=== PATIENT | female | born 1960 | race African-American/Black ===

== ENCOUNTER 2018-06-05 13:03 | Emergency (ER) | payer MEDICAID, OTHER ==
[~2018-06-05] VITALS: Ht 152.4 cm; Wt 77.1 kg
[2018-06-05 13:12] VITALS: BP 124/79
--- NOTE | 2018-06-05 13:34 | NUR ---
ED Nurse Note: PT. AAOX4. AMBULATORY. CAME IN TO ER DUE TO SOB SINCE LAST NIGHT. PER PT. HAS HX OF ASTHMA AND RAN OUT OF HER MEDICATIONS. PT. ALSO REPORTED HEADCHE AND RUNNY NOSE. WHEEZING NOTED TO AUSCULATION ON BILATERAL LUNG TURNER
--- NOTE | 2018-06-05 13:38 | Emergency Room Report ---
History of Present Illness General Chief Complaint: Flu Like Symptoms Source: Patient Present Illness HPI 57-year-old female patient presents the ER complaining of asthma and cold symptoms. Reports wheezing symptoms for the past 4 days, states has been using her inhaler however ran out of the medication. Denies taking any oral steroids. Reports history of smoking, states that she quit smoking 3 days ago. Reports cough with sputum during this time. Denies hemoptysis. Reports subjective fever at home during this time, currently afebrile in the ER. Denies recent travel outside the country. Denies vomiting or diarrhea. Denies chest pain. Denies other aggravating or relieving factors. Allergies: Coded Allergies: RISPERIDONE (Verified Allergy, Unknown, 06/05/18) Patient History Past Medical History: see triage record Reviewed Nursing Documentation: PMH: Agreed; PSxH: Agreed Nursing Documentation-PMH Hx Asthma: Yes Review of Systems All Other Systems: negative except mentioned in HPI Physical Exam Vital Signs Date Time Temp Pulse Resp B/P (MAP) Pulse Ox O2 Delivery O2 Flow Rate FiO2 06/05/18 13:12 97.9 100 23 124/79 95 Room Air Sp02 EP Interpretation: reviewed, normal General Appearance: well appearing, no apparent distress, alert, GCS 15, non- toxic Head: normocephalic, atraumatic Eyes: bilateral eye normal inspection, bilateral eye PERRL ENT: hearing grossly normal, normal pharynx, no angioedema, normal voice, uvula midline, moist mucus membranes Neck: full range of motion, no bony tend Respiratory: lungs clear, normal breath sounds, no rhonchi, no respiratory distress, no accessory muscle use, speaking full sentences, wheezing, other - No stridor Cardiovascular #1: regular rate, rhythm, no edema, normal capillary refill Musculoskeletal: back normal, digits/nails normal, gait/station normal, normal range of motion, non-tender, no calf tenderness, Connor's Sign negative Neurologic: alert, oriented x3, responsive, motor strength/tone normal, sensory intact Psychiatric: mood/affect normal Skin: no rash Medical Decision Making PA Attestation Dr. Barker is my supervising Physician whom patient management has been discussed with. Diagnostic Impression: Primary Impression: Asthma exacerbation Additional Impression: Atypical pneumonia ER Course Pt presents to ED c/o breathing difficulty. DDX considered but are not limited to asthma, viral URI, influenza, bronchitis, pneumonia, PE. Low suspicion for PE per Well's criteria. VITAL SIGNS are WNL, patient is afebrile. ER COURSE Patient provided with prednisone and cough medication. Duoneb breathing treatment provided. Following treatment patient states no longer having difficulty with breathing. Lung sounds improved however wheezing still noted. Patient declined need for second breathing treatment. Patient is resting comfortably in no acute distress, speaking full sentences, no hypoxia. CXR negative for acute disease per the preliminary reading. However, due to history of smoking and subjective fever at home, will provide patient with azithromycin to cover for possible pneumonia infection. Patient is under 65 years old, not confused, denies urinary symptoms, okay for outpatient treatment at this time. ER precautions given. DISCHARGE: -Rx given for Prednisone. -Rx provided for Albuterol MDI. -Rx provided for Tessalon Perles Rx provided for Azithromycin Rx provided for Sudafed At this time pt is stable for d/c to home. Patient is resting comfortably in no acute distress, nontoxic appearing, able to answer questions without difficulty. Patient to take medications as instructed Will provide with patient care instructions and any necessary prescriptions. Care plan and follow-up instructions provided. Patient instructed to follow-up with primary care provider in 3 - 5 days. Patient questions asked and answered. Patient reports understanding and agreement to treatment plan. ER precautions given. Patient instructed to return to ER immediately for any new or worsening of symptoms including but not limited to increasing SOB, persistent fever. - Please note that this Emergency Department Report was dictated using [employer] hand technology software, occasionally this can lead to erroneous entry secondary to interpretation by the dictation equipment. Chest X-Ray Diagnostic Results Chest X-Ray Diagnostic Results : Chest X-Ray Ordered: Yes # of Views/Limited/Complete: 1 View Indication: Chest Pain EP Interpretation: Yes PA Xray: Interpretation reviewed, by supervising MD, and agrees with findings. Interpretation: no consolidation, no effusion, no pneumothorax, no acute cardiopulmonary disease Impression: No acute disease JEFF MeadowsibManuela Kat PA-C Last Vital Signs Date Time Temp Pulse Resp B/P (MAP) Pulse Ox O2 Delivery O2 Flow Rate FiO2 06/05/18 13:12 97.9 100 23 124/79 95 Room Air Status: improved Disposition: HOME, SELF-CARE Condition: Stable Scripts Azithromycin* (ZITHROMAX*) 250 Mg Tablet 250 MG ORAL DAILY, #6 TAB 0 Refills Take two tables once daily for 1 day, then one tablet once daily for 4 days. Prov: Jos Kta 06/05/18 D-Methorphan/PE/Acetaminophen (Sudafed PE Pressure+Pain+Cough) 1 Each Tablet 1 EACH PO BID, #24 TAB Prov: Jos Kat 06/05/18 Benzonatate* (TESSALON PERLE*) 100 Mg Capsule 100 MG ORAL THREE TIMES A DAY, #30 PERLE Prov: Jos Kat 06/05/18 Albuterol Sulfate* (ALBUTEROL SULFATE MDI*) 8.5 Gm Hfa.aer.ad 2 PUFF INH Q6H, #1 INH 0 Refills Prov: Jos Kat 06/05/18 Prednisone* (PREDNISONE*) 20 Mg Tablet 40 MG ORAL DAILY for 4 Days, #8 TAB Prov: Jos Kat 06/05/18 Patient Instructions: Asthma Attack Prevention, Asthma, Acute Bronchospasm, Upper Respiratory Infection, Adult, [id number] Additional Instructions: Followup with primary care provider in 3 -5 days. Avoid smoking. Take medications as directed. Patient questions asked and answered. ER precautions given, patient instructed to return to ER immediately for any new or worsening of symptoms. Jos Kat Jun 05, 2018 13:38
[2018-06-05] MEDS ORDERED: Albuterol/Ipratropium 3ml neb HHN ONE (13:45)
[2018-06-05] MEDS ORDERED: Benzonatate 100mg Perles ORAL ONE (13:45)
[2018-06-05] MEDS ORDERED: SUDAFED PE PRE1 EACH PO (14:31)
[2018-06-05] MEDS ORDERED: ALBUTEROL SULF8.5 GM INH (14:31)
[2018-06-05] MEDS ORDERED: TESSALON PERLE100 MG ORAL (14:31)
[2018-06-05] MEDS ORDERED: PREDNISONE20 MG ORAL (14:31)
[2018-06-05] MEDS ORDERED: ZITHROMAX250 MG ORAL (14:39)
[2018-06-05 14:50] VITALS: BP 118/70
--- NOTE | 2018-06-05 14:53 | NUR ---
ER DISCHARGE NOTE: Patient is cleared to be discharged per ERMD, pt is aox4, on room air, with stable vital signs. pt was given dc and prescription instructions, pt was able to verbalize understanding, pt id band removed. pt is able to ambulate with steady gait. pt took all belongings.
--- NOTE | 2018-06-05 15:44 | Diagnostic Imaging Report ---
Indication: Chest pain Technique: One view of the chest Comparison: Findings: Lungs and pleural spaces are clear. Heart size is normal Impression: No acute process
== END 2018-06-05 15:00 | disposition home or self-care (01) ==
LOC: EMR 13:51
DX: J45.901 Unspecified asthma with (acute) exacerbation (principal); J18.9 Pneumonia, unspecified organism; Z87.891 Personal history of nicotine dependence; Z88.8 Allergy status to other drugs, medicaments and biological substances
CPT/HCPCS: 71045; 94640; 99284; J7512; J7620